=== PATIENT | female | born 1930 | race Caucasian/White ===

== ENCOUNTER 2016-09-23 19:54 | Emergency (ER) | payer MEDICARE, OTHER ==
[~2016-09-23] VITALS: Ht 152.4 cm; Wt 54.5 kg
[~2016-09-23 19:54] MED LIST: BIMA2.5D BOTH EYES; BISA-57 PO; CARV6.2579 PO; COSO10 BOTH EYES; LORA1TAB PO; MEMA10TA16 PO; SIMV40TA2 PO; SITA50TA2 PO; ZOLP5TAB7 PO
[2016-09-23 19:55] VITALS: Ht 152.4 cm; Wt 54.5 kg
[2016-09-23] MEDS ORDERED: SOD CHLORIDE 0.9% 500 ML IV STA (19:56)
[2016-09-23 20:51] LABS: BASOPHILS % 0.3 % (0.0-2.0); EOSINOPHILS # 0.1 10^3/ul (0.0-0.5); EOSINOPHILS % 0.3 % (0.0-7.0); HEMATOCRIT 35.6 % (37.0-47.0); LYMPHOCYTES # 2.8 10^3/ul (0.8-2.9); LYMPHOCYTES % 19.3 % (15.0-51.0); MEAN CORPUSCULAR HEMOGLOBIN 27.5 pg (29.0-33.0); MEAN CORPUSCULAR HGB CONC 33.7 g/dl (32.0-37.0); MEAN CORPUSCULAR VOLUME 81.7 fl (82.0-101.0); MEAN PLATELET VOLUME 10.7 fl (7.4-10.4); MONOCYTE # 1.1 10^3/ul (0.3-0.9); MONOCYTES % 7.5 % (0.0-11.0); NEUTROPHILS % 72.3 % (39.0-77.0); PLATELET COUNT 261 10^3/UL (140-415); RED BLOOD COUNT 4.36 10^6/ul (4.20-5.40); RED CELL DISTRIBUTION WIDTH 12.4 % (11.5-14.5); WHITE BLOOD COUNT 14.4 10^3/ul (4.8-10.8)
[2016-09-23 21:02] LABS: ADD UMIC YES; UR ASCORBIC ACID NEGATIVE (NEGATIVE); UR BACTERIA MODERATE /HPF (NONE SEEN); UR BILIRUBIN (Dip) NEGATIVE (NEGATIVE); UR BLOOD (Dip) 2+ mg/dL (NEGATIVE); UR CLARITY CLOUDY (CLEAR); UR COLOR YELLOW (YELLOW); UR GLUCOSE (Dip) NEGATIVE (NEGATIVE); UR KETONES (Dip) NEGATIVE (NEGATIVE); UR LEUKOCYTE ESTERASE (Dip) 3+ Leu/ul (NEGATIVE); UR MUCUS FEW /HPF (NONE SEEN); UR NITRITE (Dip) NEGATIVE (NEGATIVE); UR RBC 16 /HPF (0-5); UR SPECIFIC GRAVITY (Dip) 1.011 (1.003-1.030); UR SQUAMOUS EPITHELIAL CELL FEW /HPF (FEW); UR TOTAL PROTEIN (Dip) 1+ mg/dl (NEGATIVE); UR UROBILINOGEN (Dip) NEGATIVE (NEGATIVE); UR WBC CLUMPS FEW /HPF (NONE SEEN)
[2016-09-23 21:20] LABS: ANION GAP 15 (8-16); BLOOD UREA NITROGEN 19 mg/dl (7-20); CALCIUM 9.3 mg/dl (8.4-10.2); CARBON DIOXIDE 26 mmol/L (21-31); CHLORIDE 94 mmol/L (97-110); CREATININE 0.76 mg/dl (0.44-1.00); GLUCOSE 200 mg/dl (70-220); POTASSIUM 4.7 mmol/L (3.5-5.1); SODIUM 130 mmol/L (135-144)
[2016-09-23 21:26] LABS: INR 1.07; PROTIME 13.9 Sec (12.2-14.2); PT RATIO 1.1
[2016-09-23 21:27] LABS: PARTIAL THROMBOPLASTIN TIME 25.2 Sec (25.0-35.0)
[2016-09-23 21:32] LABS: B-TYPE NATRIURETIC PEPTIDE 2230 PG/ML (0-450)
[2016-09-23 21:55] LABS: TROPONIN-I < 0.012 ng/ml (0.00-0.12)
--- NOTE | 2016-09-23 22:34 | RADRPT ---
PROCEDURE: X-ray Chest. CLINICAL INDICATION: Chest pain. TECHNIQUE: Single view chest x-ray. COMPARISON: Exam dated 12/26/2011. 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 There is mild elevation of the right hem idiaphragm. There are atherosclerotic changes of the aorta. The cardiomediastinal silhouette is enla rged. There is diffuse bilateral interstitial disease without focal consolidation, effusion, or pne umothorax. There are no acute osseous abnormalities. IMPRESSION: 1. Cardiomegaly with findings suggestive of mild hydrostatic edema. Correlate clinically for CHF. 2. Vascular calcifications consistent with atherosclerosis. RPTAT: HLBP .Guido Camarillo MD, Date Time Electronically viewed and signed by .Guido Camarillo MD, MD on 09/23/2016 22:34 .P/
--- NOTE | 2016-09-23 22:44 | RADRPT ---
PROCEDURE: CT Neck noncontrast CLINICAL INDICATION: Choking episode TECHNIQUE: Noncontrast CT of the neck was performed. Axial images were obtained through the neck w ith multiplanar reformatted images generated from the axial acquired data. The administered radiatio n dose was CTDI vol = 9.1 mGy, DLP = 196 mGy-cm. COMPARISON: There are no similar studies submitted for comparison. FINDINGS: Evaluation is limited without intravenous contrast. Skull/Brain: The visualized portions of the brain are grossly unremarkable.The visualized orbits are unremarkable.The visualized paranasal sinuses are well aerated.The bilateral mastoid air cells are within normal limits. Parotid glands: Unremarkable on this unenhanced examination. Submandibular glands: Unremarkable on this unenhanced examination. Thyroid gland: The thyroid is diffusely nodular and heterogeneous with some small calcifications. Vasculature: Evaluation is limited without intravenous contrast. Atherosclerotic calcifications are noted within the right carotid bulb. Prior left carotid endarterectomy is noted. Lymph nodes: Multiple small lymph nodes are identified in the neck in levels I-V none of which are n ot pathologically enlarged. The lymph nodes are relatively bilateral and symmetric in distribution. Aerodigestive tract: There is streak artifact from dental hardware limiting evaluation of the oral c avity.Evaluation for primary aerodigestive tract lesion is limited without contrast. There is no de finite evidence of aerodigestive tract effacement. No radiopaque foreign bodies are seen. Other: The lung apices are unremarkable. Osseous structures: No destructive lytic or blastic osseous lesion is identified. IMPRESSION: No definite mass or fluid collection given limitations. No cervical adenopathy. Nodular and heterogeneous thyroid likely due to goiter. RPTAT: HIKT .Nikhil Marquez MD, Date Time Electronically viewed and signed by .Nikhil Marquez MD, on 09/23/2016 22:43 .T/
[2016-09-23] MEDS ORDERED: CEFEPIME 2GM/50 ML (PMX) 50 ML IVPB ONE (23:00)
[2016-09-24] MEDS ORDERED: CLIN-73 PO (00:09)
[2016-09-24] MEDS ORDERED: ONDA4TAB14 PO (00:11)
[2016-09-24] MEDS ORDERED: CIPR500T4 PO (00:11)
[2016-09-24 00:20] VITALS: BP 117/55; PULSE 93; RESP 18; TEMP 100
--- NOTE | 2016-09-24 00:26 | ERA ---
ER Documentation Chief Complaint Date/Time DATE: 09/24/16 TIME: 00:13 Chief Complaint RA 81 alert, awake,flat affect, BIBA for aspiration,hx Alzheimer's HPI 36-year-old female presents for having a choking episode after she had been fed her pured food. She normally suffers from dysphagia. Family does have noticed no other abnormalities except for the episode of choking that was brief followed by some coughing. She otherwise seems well. She suffers from severe Alzheimer's and is seeming normally now family came to get her checked out. ROS All systems reviewed and are negative except as per history of present illness. Medications Home Meds Active Scripts Ondansetron (Ondansetron Odt) 4 Mg Tab.rapdis, 4 MG PO Q6H Y for NAUSEA AND/OR VOMITING, #10 TAB Prov:SHIVA DAYUA DO 09/24/16 Ciprofloxacin Hcl* (Ciprofloxacin Hcl*) 500 Mg Tablet, 500 MG PO BID, #10 TAB Prov:SHAYBERTO DO 09/24/16 Clindamycin Hcl* (Clindamycin Hcl*) 300 Mg Capsule, 300 MG PO TID for 1 Day, CAP Prov:BERTO DAY DO 09/24/16 Reported Medications Bisacodyl* (Dulcolax*) 5 Mg Tablet.dr, 5 MG PO BID, TAB 12/02/14 Lorazepam* (Lorazepam*) 1 Mg Tablet, 1 MG PO DAILY Y for ANXIETY, TAB 12/02/14 Memantine* (Namenda*) 10 Mg Tablet, 20 MG PO DAILY, TAB 12/02/14 Sitagliptin* (Januvia*) 50 Mg Tablet, 50 MG PO DAILY, TAB 12/02/14 Dorzolamide-Timolol* (Cosopt*) 2%-0.5% Soln, 1 DROP BOTH EYES BID, BOTTLE 12/02/14 Bimatoprost* (Lumigan*) 0.01%-2.5 Ml Opht Drops, 1 DROP BOTH EYES HS, EA 12/02/14 Simvastatin* (Zocor*) 40 Mg Tablet, 40 MG PO HS, TAB 12/02/14 Zolpidem Tartrate* (Zolpidem Tartrate*) 5 Mg Tablet, 10 MG PO HS Y 12/11/11 Carvedilol* (Carvedilol*) 6.25 Mg Tablet, 6.25 MG PO Q12 12/11/11 Allergies Allergies: Coded Allergies: No Known Drug Allergy (Verified Allergy, Mild, 12/02/14) PMhx/Soc Anesthesia Reaction: No Hx Neurological Disorder: Yes (Advanced Alzheimers) Hx Respiratory Disorders: No Hx Cardiac Disorders: Yes (HTN, Dyslipidemia) Hx Psychiatric Problems: No Hx Alcohol Use: No Hx Substance Use: No Hx Tobacco Use: No Smoking Status: Unknown if ever smoked Physical Exam Vitals Vital Signs Date Time Temp Pulse Resp B/P Pulse Ox O2 Delivery O2 Flow Rate FiO2 09/23/16 21:05 102 24 98 21 09/23/16 19:55 100.4 89 18 155/69 92 Physical Exam Const: [] Head: Atraumatic Eyes: Normal Conjunctiva ENT: Normal External Ears, Nose and Mouth. Neck: Full range of motion..~ No meningismus. Resp: Clear to auscultation bilaterally Cardio: Regular rate and rhythm, no murmurs Abd: Soft, non tender, non distended. Normal bowel sounds Skin: No petechiae or rashes Back: No midline or flank tenderness Ext: No cyanosis, or edema Neur: Awake and alert Psych: Normal Mood and Affect Result Diagram: 09/23/16204609/23/162046 Results 24 hrs Laboratory Tests Test 09/23/16 20:47 White Blood Count 14.410^3/ul Red Blood Count 4.3610^6/ul Hemoglobin 12.0g/dl Hematocrit 35.6% Mean Corpuscular Volume 81.7fl Mean Corpuscular Hemoglobin 27.5pg Mean Corpuscular Hemoglobin Concent 33.7g/dl Red Cell Distribution Width 12.4% Platelet Count 52013^3/UL Mean Platelet Volume 10.7fl Neutrophils % 72.3% Lymphocytes % 19.3% Monocytes % 7.5% Eosinophils % 0.3% Basophils % 0.3% Nucleated Red Blood Cells % 0.0/100WBC Neutrophils # (Manual) 1010^3/ul Lymphocytes # 2.810^3/ul Monocytes # 1.110^3/ul Eosinophils # 0.110^3/ul Basophils # 0.010^3/ul Nucleated Red Blood Cells # 0.010^3/ul Prothrombin Time 13.9Sec Prothrombin Time Ratio 1.1 INR International Normalized Ratio 1.07 Activated Partial Thromboplast Time 25.2Sec Urine Color YELLOW Urine Clarity CLOUDY Urine pH 6.0 Urine Specific [place] 1.011 Urine Ketones NEGATIVEmg/dL Urine Nitrite NEGATIVEmg/dL Urine Bilirubin NEGATIVEmg/dL Urine Urobilinogen NEGATIVEmg/dL Urine Leukocyte Esterase 3+Sarah Beth/ul Urine Microscopic RBC 16/HPF Urine Microscopic WBC > 182/HPF Urine Squamous Epithelial Cells FEW/HPF Urine Bacteria MODERATE/HPF Urine Mucus FEW/HPF Urine Hemoglobin 2+mg/dL Urine Glucose NEGATIVEmg/dL Urine Total Protein 1+mg/dl Sodium Level 130mmol/L Potassium Level 4.7mmol/L Chloride Level 94mmol/L Carbon Dioxide Level 26mmol/L Anion Gap 15 Blood Urea Nitrogen 19mg/dl Creatinine 0.76mg/dl Glucose Level 200mg/dl Calcium Level 9.3mg/dl Troponin I < 0.012ng/ml B-Type Natriuretic Peptide 2230PG/ML Current Medications Medications (Trade) Dose Ordered Sig/Trudy Route PRN Reason Start Time Stop Time Status Last Admin Dose Admin Sodium Chloride 500 ml @ 500 mls/hr Q1H STAT IV 09/23/16 19:56 09/23/16 20:55 DC 09/23/16 20:47 Cefepime HCl (Maxipime 2gm/50 ml (Pmx)) 50 ml @ 100 mls/hr ONCE ONCE IVPB 09/23/16 23:00 09/23/16 23:29 DC 09/23/16 23:52 Procedures/MDM Choking episode with urinary tract infection and new diagnosis of congestive heart failure. This is a very debilitated patient cared for by family. No signs of acute ischemia. No signs currently of aspiration pneumonitis. Patient 's increased aphasia may be contributed to from urinary tract infection. She was given a gram of cefepime in the emergency room. I was going to admit the patient and advised the family of this. They prefer to take her home AGAINST MEDICAL ADVICE because she does not do well in hospitals without constant care from the family she is nervous around strangers. I understand the concerns they deathly did not want to keep the patient in the hospital for her remaining life. I have told her that she may has be hospitalized eventually if this condition is not cared for per I am going to discharge her with ciprofloxacin for further treatment of a complicated UTI. She was hydrated with normal saline. I am also discharging her with 7 days of clindamycin to prevent growth of oral mikey from aspiration. Also Zofran ODT as needed nausea. Family agrees to see primary care doctor within the next 2 days. I printed all the laboratories and findings for the patient registration representative primary care doctor. EKG interpretation: Normal sinus rhythm, rate of 92, persistent artifact throughout EKG, normal intervals, no ST elevations or depressions concerning for acute ischemia. Artifactual EKG. coat maker interpretation: Normal sinus rhythm and no arrhythmia CT soft tissue neck interpretation: I see no abnormality. I see no soft tissue mass or any anatomical obstruction, no bony abnormalities Chest x-ray interpretation: Engorgement of pulmonary vasculature consistent with congestive heart failure, no infiltrate, no mass, Departure Diagnosis: Primary Impression: Complicated UTI (urinary tract infection) Additional Impressions: Congestive heart failure Dysphagia Hyponatremia Condition: Fair Patient Instructions: Understanding Dysphagia, Understanding Urinary Tract Infections (UTIs), When Your Child Has Congestive Heart Failure (CHF) Additional Instructions: Call your primary care doctor TOMORROW for an appointment during the next 1-2 days.See the doctor sooner or return here if your condition worsens before your appointment time. BERTO DAY DO Sep 24, 2016 00:24
== END 2016-09-24 01:46 | disposition left against medical advice (07) ==
LOC: E/R 19:54
DX: N39.0 Urinary tract infection, site not specified (principal); I50.9 Heart failure, unspecified; E87.1 Hypo-osmolality and hyponatremia; G30.9 Alzheimer's disease, unspecified; R40.2142 Coma scale, eyes open, spontaneous, at arrival to emergency department; R40.2242 Coma scale, best verbal response, confused conversation, at arrival to emergency department; R40.2362 Coma scale, best motor response, obeys commands, at arrival to emergency department; I10 Essential (primary) hypertension
CPT/HCPCS: 36415; 70490; 71010; 80048; 81001; 83880; 84484; 85025; 85610; 85730; 87086; 93005; 96361; 96374; 99285; J0692; J7040

== ENCOUNTER 2016-11-18 19:18 | Emergency (ER) | payer MEDICARE, OTHER ==
[~2016-11-18] VITALS: Ht 152.4 cm; Wt 45.4 kg
[~2016-11-18 19:18] MED LIST changes: +CIPR500T4 PO; +CLIN-73 PO; +ONDA4TAB14 PO
[2016-11-18 19:23] VITALS: Ht 152.4 cm; Wt 45.4 kg
[2016-11-18 20:45] VITALS: BP 157/70; PULSE 74; RESP 18; TEMP 97.5
--- NOTE | 2016-11-18 21:21 | ERD ---
ER Documentation Chief Complaint Date/Time DATE: 11/18/16 TIME: 21:17 Chief Complaint cough x 1 week, fever on and off HPI 86-year-old female presents with 1 week of cough with palpable fevers occasionally. She suffers from dementia and has not been able to speak or understand anything for 3 years. Besides that she has not complained of any pain in his she is not really able to. History is from the daughter and granddaughter. ROS Unobtainable Medications Home Meds Active Scripts Ondansetron (Ondansetron Odt) 4 Mg Tab.rapdis, 4 MG PO Q6H Y for NAUSEA AND/OR VOMITING, #10 TAB Prov:BERTO DAY DO 09/24/16 Ciprofloxacin Hcl* (Ciprofloxacin Hcl*) 500 Mg Tablet, 500 MG PO BID, #10 TAB Prov:TAMERA DAYSHUA DO 09/24/16 Clindamycin Hcl* (Clindamycin Hcl*) 300 Mg Capsule, 300 MG PO TID for 1 Day, CAP Prov:BERTO DAY DO 09/24/16 Reported Medications Bisacodyl* (Dulcolax*) 5 Mg Tablet.dr, 5 MG PO BID, TAB 12/02/14 Lorazepam* (Lorazepam*) 1 Mg Tablet, 1 MG PO DAILY Y for ANXIETY, TAB 12/02/14 Memantine* (Namenda*) 10 Mg Tablet, 20 MG PO DAILY, TAB 12/02/14 Sitagliptin* (Januvia*) 50 Mg Tablet, 50 MG PO DAILY, TAB 12/02/14 Dorzolamide-Timolol* (Cosopt*) 2%-0.5% Soln, 1 DROP BOTH EYES BID, BOTTLE 12/02/14 Bimatoprost* (Lumigan*) 0.01%-2.5 Ml Opht Drops, 1 DROP BOTH EYES HS, EA 12/02/14 Simvastatin* (Zocor*) 40 Mg Tablet, 40 MG PO HS, TAB 12/02/14 Zolpidem Tartrate* (Zolpidem Tartrate*) 5 Mg Tablet, 10 MG PO HS Y 12/11/11 Carvedilol* (Carvedilol*) 6.25 Mg Tablet, 6.25 MG PO Q12 12/11/11 Allergies Allergies: Coded Allergies: No Known Drug Allergy (Verified Allergy, Mild, 12/02/14) PMhx/Soc Anesthesia Reaction: No Hx Neurological Disorder: Yes (Advanced Alzheimers) Hx Respiratory Disorders: No Hx Cardiac Disorders: Yes (HTN, Dyslipidemia) Hx Psychiatric Problems: No Hx Alcohol Use: No Hx Substance Use: No Hx Tobacco Use: No Physical Exam Vitals Vital Signs Date Time Temp Pulse Resp B/P Pulse Ox O2 Delivery O2 Flow Rate FiO2 11/18/16 19:23 97.1 82 20 132/57 94 Physical Exam Const: [] Mild distress Head: Atraumatic Eyes: Normal Conjunctiva ENT: Normal External Ears, Nose and Mouth. Neck: Full range of motion..~ No meningismus. Resp: Clear to auscultation bilaterally, poor respiratory effort as patient is not able to understand instructions to breathe deeply. Cardio: Regular rate and rhythm, no murmurs, median sternotomy scar Abd: Soft, non tender, non distended. Normal bowel sounds Skin: No petechiae or rashes Back: No midline or flank tenderness Ext: No cyanosis, or edema Neur: Awake and alert, moves all 4 extremities Psych: Normal Mood and Affect Procedures/MDM EKG interpretation: Normal sinus rhythm with first-degree AV block rate of 73 low voltage, no ST or T-wave changes. BERTO DAY DO Nov 18, 2016 21:21
[2016-11-18 22:05] LABS: BASOPHIL # 0.1 10^3/ul (0.0-0.1); BASOPHILS % 0.7 % (0.0-2.0); EOSINOPHILS # 0.4 10^3/ul (0.0-0.5); EOSINOPHILS % 4.1 % (0.0-7.0); HEMATOCRIT 35.2 % (37.0-47.0); HEMOGLOBIN 11.4 g/dl (12.0-16.0); LYMPHOCYTES # 2.6 10^3/ul (0.8-2.9); LYMPHOCYTES % 28.5 % (15.0-51.0); MEAN CORPUSCULAR HEMOGLOBIN 27.2 pg (29.0-33.0); MEAN CORPUSCULAR HGB CONC 32.4 g/dl (32.0-37.0); MEAN PLATELET VOLUME 11.6 fl (7.4-10.4); MONOCYTE # 0.8 10^3/ul (0.3-0.9); MONOCYTES % 8.2 % (0.0-11.0); NEUTROPHIL # 5.3 10^3/ul (1.6-7.5); NEUTROPHILS % 58.1 % (39.0-77.0); PLATELET COUNT 229 10^3/UL (140-415); RED BLOOD COUNT 4.19 10^6/ul (4.20-5.40); RED CELL DISTRIBUTION WIDTH 13.2 % (11.5-14.5); WHITE BLOOD COUNT 9.2 10^3/ul (4.8-10.8)
[2016-11-18 22:23] LABS: ANION GAP 13 (8-16); BLOOD UREA NITROGEN 16 mg/dl (7-20); CALCIUM 9.1 mg/dl (8.4-10.2); CARBON DIOXIDE 27 mmol/L (21-31); CHLORIDE 108 mmol/L (97-110); CREATININE 0.96 mg/dl (0.44-1.00); GLUCOSE 126 mg/dl (70-220); POTASSIUM 5.6 mmol/L (3.5-5.1); SODIUM 142 mmol/L (135-144)
[2016-11-18 22:34] LABS: B-TYPE NATRIURETIC PEPTIDE 1560 PG/ML (0-450)
--- NOTE | 2016-11-18 22:48 | RADRPT ---
PROCEDURE: XR Chest. CLINICAL INDICATION: Chest pain. TECHNIQUE: Single frontal view of the chest. COMPARISON: 12/26/2011. FINDINGS: Cardiomegaly with atherosclerotic calcifications in the thoracic aorta. Previously seen pleural effu sions are resolved over the interval. Mild right lung base atelectasis. There is substantially impro jay lung inflation at the bilateral lung bases over the interval. No signs of pleural fluid or pneumothorax are seen. The osseous structures and soft tissues are unre markable. IMPRESSION: 1. Previously seen pleural effusions are resolved over interval. 2. Mild atelectasis at the right lung base. RPTAT: [facility] Physician Rayo Date Time Electronically viewed and signed by Physician Rayo on 11/18/2016 22:47 RS/
[2016-11-18 23:08] LABS: TROPONIN-I < 0.012 ng/ml (0.00-0.12)
[2016-11-18] MEDS ORDERED: LEVO500T72 PO (23:14)
[2016-11-18] MEDS ORDERED: KAYPO PO (23:14)
[2016-11-18] MEDS ORDERED: FUROSEMIDE 40 MG INJ IV ONE (23:30)
== END 2016-11-19 00:30 | disposition home or self-care (01) ==
LOC: E/R 19:18
DX: R05 Cough (principal); R40.2342 Coma scale, best motor response, flexion withdrawal, at arrival to emergency department; I10 Essential (primary) hypertension; R40.2212 Coma scale, best verbal response, none, at arrival to emergency department; R40.2142 Coma scale, eyes open, spontaneous, at arrival to emergency department; Z79.84 Long term (current) use of oral hypoglycemic drugs
CPT/HCPCS: 36415; 71010; 80048; 83880; 84484; 85025; 96374; 99285; J1940